=== PATIENT | female | born 1985 | race Caucasian/White ===

== ENCOUNTER 2024-06-26 19:49 | Emergency (ER) | payer MEDICAID ==
[~2024-06-26] VITALS: Ht 165.1 cm; Wt 57.9 kg
[2024-06-26 19:56] VITALS: BP 94/63; PULSE 89; RESP 16; TEMP 98.3; O2SAT 99
[2024-06-26 20:42] LABS: BASOPHILS % (AUTO) 0.5 % (0-1); EOSINOPHILS # (AUTO) 0.4 X10'3 (0-0.9); EOSINOPHILS % (AUTO) 6.9 % (0-6); HEMATOCRIT 44.1 % (35.0-45.0); HEMOGLOBIN 15.1 g/dl (12.0-16.0); LYMPHOCYTES % (AUTO) 16.5 % (21-51); MEAN CORPUSCULAR HEMOGLOBIN 31.2 PG (27.0-31.0); MEAN CORPUSCULAR HGB CONC 34.2 g/dL (33.0-36.5); MEAN CORPUSCULAR VOLUME 91.3 FL (78-98); MEAN PLATELET VOLUME 8.9 FL (7.4-10.4); MONOCYTES # (AUTO) 0.7 X10'3 (0-0.9); MONOCYTES % (AUTO) 11.8 % (2-12); NEUTROPHILS % (AUTO) 64.3 % (42-75); PLATELET COUNT 270 X10'3 (140-440); RED BLOOD COUNT 4.83 X10'6 (4.20-5.60); RED CELL DISTRIBUTION WIDTH 13.8 % (11.5-14.5); WHITE BLOOD COUNT 6.2 X10'3 (4.5-11.0)
[2024-06-26 20:50] LABS: ALBUMIN 3.2 G/DL (3.4-5.0); ANION GAP 7 (8-16); BLOOD UREA NITROGEN 17 MG/DL (7-18); BUN/CREATININE RATIO 18.9 (10.0-20.0); CALCIUM 7.7 MG/DL (8.5-10.1); CHLORIDE 102 MMOL/L (99-107); GLUCOSE 91 MG/DL (70-104); POTASSIUM 3.5 MMOL/L (3.5-5.1); SODIUM 138 MMOL/L (135-145); TOTAL CARBON DIOXIDE 28.8 MMOL/L (24-32); eCRCL 76 ML/MIN; eGFR 70 ML/MIN
[2024-06-26 23:17] LABS: BILIRUBIN,URINE NEGATIVE (Neg); CLARITY,URINE SLIGHTLY CLOUDY (Clear); COLOR,URINE YELLOW (Yellow); GLUCOSE, URINE NEGATIVE (Neg); KETONES,URINE 15 mg/dl (Neg); LEUKOCYTE ESTERASE ,URINE NEGATIVE (Neg); NITRITES, URINE NEGATIVE (Neg); OCCULT BLOOD,URINE NEGATIVE (Neg); PROTEIN,URINE TRACE mg/dl (Neg)
[2024-06-26 23:21] LABS: UA COLLECTION TYPE CLN CATCH MIDSTREAM
[2024-06-26 23:22] LABS: RBC,URINE 0-2 /HPF (0-2); SQUAMOUS EPITHELIAL CELL,UR MANY /LPF (FEW)
[2024-06-26 23:23] LABS: BACTERIA,URINE 3+ /HPF (Neg); WBC,URINE 0-4 /HPF (0-4)
[2024-06-26] MEDS: azithromycin 250mg tablet PO ONE (23:58)
[2024-06-26] MEDS: ondansetron 4mg rapidly disintigrating tab PO ONE (23:58)
[2024-06-26] MEDS: CefTRIAXone 500MG IM Kit w/LIDOcaine IM ONE (23:59)
[2024-06-28 17:09] LABS: CHLAMYDIA TRACHOMATIS, NAA Negative (Negative)
== END 2024-06-27 00:15 | disposition home or self-care (01) ==
LOC: ER 19:49
DX: N34.2 Other urethritis (principal)
CPT/HCPCS: 36415; 80048; 81001; 85025; 87491; 87591; 96372; 99283; J0696

== ENCOUNTER 2025-04-22 01:02 | Emergency (ER) | payer MEDICAID ==
[~2025-04-22] VITALS: Ht 165.1 cm; Wt 59.6 kg
[2025-04-22 01:06] VITALS: BP 111/79; PULSE 102; RESP 18; O2SAT 100
--- NOTE | 2025-04-22 01:29 | Physician Documentation ---
History of Present Illness ~ Chief Complaint: Flank Pain Stated Complaint: KIDNEY PAIN Time Seen by MD: 01:24 HPI Patient presents to the emergency room for evaluation of bilateral flank pain. Symptoms began yesterday in the right side but have progressed today. She has endorse urinary urgency. No fevers. Medication Reconciliation Allergies: Coded Allergies: No Known Allergies (Unverified , 06/26/24) Past Medical History Past Medical History: No Pertinent History Review of Systems ROS All review of systems negative except as per HPI Physical Exam Vital Signs: Temperature: 98.2, Source: Temporal, Heart Rate: 102, Respiratory Rate: 18, BP: 111/79, Pulse Oximetry: 100, Weight: 59.600 Oxygen Flow Rate: 0 Physical Exam General: Patient is awake, alert, oriented x4 in no acute distress and well appearing.~ Head: Normocephalic and atraumatic. Eyes: Conjunctival normal. EOMI. PERRL. ENT: Mucous membranes moist. Neck: Supple, trachea is midline. Chest: Clear to auscultation bilaterally without rales, rhonchi, or wheezes. There is no accessory muscle use or retractions. Cardiac: RRR without murmurs, gallops, or rubs. Abd: Soft, nondistended, nontender, with normoactive bowel sounds. No guarding, rebound, or rigidity. Back: Bilateral CVA tenderness Progress Results/Orders Results/Orders Orders - BILLY KRISHNA MD Cbc/Diff (04/22/25 01:04) BMP (04/22/25 01:04) Lipase (04/22/25 01:04) CMP (04/22/25 01:04) Cult Urine + [place] [address] (04/22/25 02:12) Cephalexin Capsule (Keflex Capsule) (04/22/25 02:20) Ondansetron Disint. Tablet (Zofran Odt T (04/22/25 02:20) Completed Orders - BILLY KRISHNA MD Hcg, Ur Ql (04/22/25 01:04) Ibuprofen Tablet (Motrin Tablet) (04/22/25 01:30) Acetaminophen 325mg Tablet (Tylenol Tabl (04/22/25 01:30) Ua W/Microscopic, Cult If Ind (04/22/25 01:09) Medications Received in ER Medications (Trade) Dose Ordered Sig/Hoda Route PRN Reason Start Time Stop Time Status Last Admin Dose Admin (Motrin tablet) 800 mg ONCE ONCE PO 04/22/25 01:30 04/22/25 01:31 DC 04/22/25 01:37 800 MG (Tylenol tablet) 650 mg ONCE ONCE PO 04/22/25 01:30 04/22/25 01:31 DC 04/22/25 01:37 650 MG Vital Signs 04/22/25 01:06 Temp 98.2 Pulse 102 Resp 18 B/P (MAP) 111/79 Pulse Ox 100 O2 Flow Rate 0 Laboratory Tests Test 04/22/25 01:09 Urine Specimen Description Cln catch midstream Urine Color Yellow Urine Clarity Slightly cloudy Urine pH 6.0 Urine Specific [place] 1.025 Urine Protein Negative Urine Glucose (UA) Negative Urine Ketones Negative Urine Occult Blood Negative Urine Nitrite Positive H Urine Bilirubin Negative Urine Urobilinogen 0.2 Urine Leukocyte Esterase Negative Urine RBC 0-2 Urine WBC 5-10 H Urine Squamous Epithelial Cells Few Urine Amorphous Urates 1+ Urine Bacteria 1+ Urine Mucus Few Urine Culture Indicated Indicated Volume Urine Centrifuged 10 ml Urine HCG, Qualitative Negative Urine Comment Medical Decision Making Additional information obtaine: old records Findings Patient presents to the emergency room for evaluation of bilateral flank pain. Differentials include but are not limited to musculoskeletal pain, aortic pathology referred pain, pyelonephritis, kidney stone. Urinalysis positive for urinary tract infection and we will treat her for pyelonephritis. ER precautions discussed. Upon re-evaluation patient was sleeping comfortably with stable vitals and he had not feel additional emergent labs or imaging is necessary. Diff Dx GI Bleed:Consideration: Include: AE fistula, Angiodysplasia, Bleeding diathesis, Blood loss anemia, Carcinoma, Diverticulosis, Diverticulitis, Esophageal varicies, Esophagitis, Gastritis, Gastroenteritis, Inflammatory BD, Bernice-Luong syndrome, Meckel's diverticulum, PUD, Other Diff Dx Pain:Considerations: Include: AAA, -Complete, - Incomplete, -Inevitable, -Missed, -Threatened, Abruptio placentae, Angina/[place], Aortic dissection, Appendicitis, Bowel obstruction, Cholangitis, Cholecystitis, Cholelithasis, Constipation, Diverticular disease, Dysmenorrhea, Ectopic , Esophageal rupture, Esophagitis, Gastritis/PUD, Gastroenteritis, GI hemorrhage, Hernia, Hepatitis, Inflammatory BD, Ischemic bowel, Mass, Ovarian cyst/torsion, Pancreatitis, PID, Porphyria, Trauma, intraabdominal, Urinary obstruction, Urinary tract infection, Urolithiasis, Other Diff Dx N/V/D:Considerations: Include: Appendicitis, Bowel obstruction, Dehydration, DKA, Diarrhea - bacterial, Diarrhea - parasitic, Diarrhea - viral, Diverticulitis, Diverticulosis, Drug toxicity, Electrolyte imbalance, Food poisoning, Gastroenteritis, GE reflux, GI bleed, Hepatitis, Hernia, Hypovolemia, Hypotension, Inflammatory BD, Impaction, Malnutrition, Pancreatitis, , PUD, Renal failure, Urolithiasis, Urinary obstruction, UTI, Other Diff Dx Rectal:Considerations: Include: Fissure, Fistula, Foreign body, Impaction, Perirectal abscess, Rectal prolapse, Subcutaneous abscess, Thrombosed hemorrhoid, Ulcer, UTI, Other Departure Disposition: 01 HOME / SELF CARE / HOMELESS Impression: Primary Impression: Acute pyelonephritis Condition: Stable Discharge Instructions: Pyelonephritis, Adult Referrals: NO PRIMARY CARE PROVIDER (PCP) Prescriptions Cephalexin*Monohydrate* (Keflex*) 500 Mg Capsule 1 CAP PO Q12H for 10 Days, #20 CAP Prov: BILLY KRISHNA MD 04/22/25 Signature Scribe Signature: No scribe Attestation: The note accurately reflects work and decisions made by me.Billy Krishna MD 04/22/25 02:22 BILLY KRISHNA MD Apr 22, 2025 01:29
[2025-04-22] MEDS: ibuprofen tablet 400 MG TABLET PO ONE (01:37)
[2025-04-22 01:54] LABS: LEUKOCYTE ESTERASE ,URINE NEGATIVE (Neg); NITRITES, URINE POSITIVE (Neg); OCCULT BLOOD,URINE NEGATIVE (Neg)
[2025-04-22 01:56] LABS: URINE HCG NEGATIVE (NEG)
[2025-04-22 02:08] LABS: UA COLLECTION TYPE CLN CATCH MIDSTREAM
[2025-04-22 02:11] LABS: MUCUS STRANDS FEW /LPF (Neg); SQUAMOUS EPITHELIAL CELL,UR FEW /LPF (FEW)
[2025-04-22 02:12] LABS: AMORPHOUS URATES 1+
[2025-04-22] MEDS ORDERED: CEPH-585 PO (02:22)
[2025-04-22] MEDS: ondansetron 4mg rapidly disintigrating tab PO ONE (02:31)
[2025-04-22 02:34] VITALS: TEMP 98.2
== END 2025-04-22 02:36 | disposition home or self-care (01) ==
LOC: ER 01:03
DX: N10 Acute pyelonephritis (principal)
CPT/HCPCS: 81001; 81025; 87077; 87088; 87186; 99284